=== PATIENT | male | born 1990 | race Two or more races ===

== ENCOUNTER 2023-04-23 12:04 | Outpatient (OUT) | payer SELFPAY ==
--- NOTE | 2023-04-23 12:13 | XR_ITS ---
The [address] [address] Patient Name: AN PATTEN MRN: [id number] date: 1990 Sex: M Assigned Patient Location: RAD Current Patient Location: RAD Accession/Order Number: [id number] Exam Date: 04/23/2023 12:20 Report Date: 04/23/2023 12:50 At the request of: YADIEL MICHEL Procedure: XR soft tissue neck EXAMINATION: XR abdomen 1V, XR soft tissue neck, [id number], [id number] HISTORY: Swallowed metal COMPARISON: None. FINDINGS/IMPRESSION: No radiopaque foreign body within the neck or abdomen. Note that the chest is not included on either of these exams. Retropharyngeal soft tissues and epiglottis are within normal limits. No hypopharyngeal narrowing. Nonobstructive bowel gas pattern. Stool burden is average. No acute fracture or suspicious osseous lesion. Electronically authenticated by: ONEAL CHAMBERS Date: 04/23/2023 12:50
--- NOTE | 2023-04-23 12:20 | XR_ITS ---
The [address] [address] Patient Name: AN PATTEN MRN: [id number] date: 1990 Sex: M Assigned Patient Location: RAD Current Patient Location: RAD Accession/Order Number: [id number] Exam Date: 04/23/2023 12:20 Report Date: 04/23/2023 12:50 At the request of: YADIEL MICHEL Procedure: XR abdomen 1V EXAMINATION: XR abdomen 1V, XR soft tissue neck, [id number], [id number] HISTORY: Swallowed metal COMPARISON: None. FINDINGS/IMPRESSION: No radiopaque foreign body within the neck or abdomen. Note that the chest is not included on either of these exams. Retropharyngeal soft tissues and epiglottis are within normal limits. No hypopharyngeal narrowing. Nonobstructive bowel gas pattern. Stool burden is average. No acute fracture or suspicious osseous lesion. Electronically authenticated by: ONEAL CHAMBERS Date: 04/23/2023 12:50
== END 2023-04-23 12:05 | disposition home or self-care (01) ==
LOC: RAD 12:08
PROVIDERS: Visit Provider Nurse Practitioner Family
DX: T18.9XXA Foreign body of alimentary tract, part unspecified, initial encounter (principal)
CPT/HCPCS: 70360; 74018

== ENCOUNTER 2024-08-22 14:59 | Emergency (ER) | payer OTHER, SELFPAY ==
[2024-08-22 15:15] VITALS: BP 109/73; TEMP 38.3; O2SAT 97; BMI 25.9
--- NOTE | 2024-08-22 15:21 | ED.GENADUL1 ---
HPI HPI - General Adult General Chief complaint: Nausea/Vomiting/Diarrhea Stated complaint: nausea, cough, body aches Time Seen by Provider: 08/22/24 15:01 Source: patient Mode of arrival: walk-in Limitations: no limitations History of Present Illness HPI narrative: Patient is a 33-year-old male who presents to the emergency department for evaluation of flulike illness that began last night. He states he is very tired and fatigued, he has a sore throat and cough. He reports nausea without vomiting. He has not had an objective fever at home although he is noted to be febrile on arrival to the ER. He reports a headache, he has not taken any Motrin or Tylenol today. No sick contacts in the home. He has not had any sputum production. Related Data Home Medications ?Medication ?Instructions ?Recorded ?Confirmed buprenorphine 8 mg-naloxone 2 mg 2 film sublingual Q24H 08/22/24 08/22/24 sublingual film hydroxyzine HCl 10 mg tablet 10 mg PO Q6H 08/22/24 08/22/24 Previous Rx's ?Medication ?Instructions ?Recorded albuterol sulfate 90 mcg/actuation 2 inh inhalation Q4H PRN shortness 08/22/24 aerosol inhaler of breath or wheezing #8.5 grams jrhaeklsmcnsrql-qtzsoomhvyxiqea-RP 10 ml PO Q6H PRN cold symptoms 08/22/24 2 mg-30 mg-10 mg/5 mL oral syrup #200 mL (Bromfed DM) cefdinir 300 mg capsule 300 mg PO BID 10 days #20 caps 08/22/24 dexamethasone 4 mg tablet 4 mg PO BID 5 days #10 tabs 08/22/24 ondansetron 4 mg disintegrating 4 mg PO Q6H PRN nausea and 08/22/24 tablet vomiting #12 tabs Allergies Allergy/AdvReac Type Severity Reaction Status Date / Time No Known Drug Allergies Allergy Verified 08/22/24 15:14 Opioid HPI Opioid Management Most Recent Opioid Data: Last Pain Scale 6 08/22/24 15:47 08/22/24 Last MAR Pain Assessment 08/22/24 15:47 Review of Systems ROS Constitutional Reports: fever; Denies: chills Ears, nose, mouth, and throat Reports: throat pain and nasal congestion Cardiovascular Denies: chest pain Respiratory Reports: cough and wheezing; Denies: shortness of breath Gastrointestinal Reports: nausea; Denies: abdominal pain, vomiting or diarrhea Integumentary/Breast Denies: rash Neurological Reports: headache; Denies: numbness in extremities or weakness in extremities Hematologic/Lymphatic Denies: easy bruising or easy bleeding PFSH PFS Social History Little interest or pleasure in doing things: not at all Feeling down, depressed, or hopeless: not at all Exam Narrative Exam Narrative: Gen.: Awake, alert, in no distress Head: Normocephalic, atraumatic ENT: Moist mucous membranes, no pharyngeal erythema with clear speech. No trismus or drooling. Bilateral TMs clear Respiratory: No respiratory distress, speaks in full sentences with faint expiratory wheezing globally. Cardio: Regular rate and rhythm Extremities: Moves extremities equally Psych: Normal mood and affect Neuro: No focal neuro deficit Skin: Warm, dry, intact Constitutional Vital Signs, click to edit/add: Last Vital Signs Temp 100.9 F H 08/22/24 15:15 Resp 98 H 08/22/24 15:15 BP 109/73 08/22/24 15:15 Pulse Ox 97 08/22/24 15:15 O2 Del Method Room Air 08/22/24 15:15 Course Vital Signs Vital signs: Vital Signs Temperature 100.9 F H 08/22/24 15:15 Respiratory Rate 98 H 08/22/24 15:15 Blood Pressure 109/73 08/22/24 15:15 Pulse Oximetry 97 08/22/24 15:15 Oxygen Delivery Method Room Air 08/22/24 15:15 Temperature 100.9 F H 08/22/24 15:15 Respiratory Rate 98 H 08/22/24 15:15 Blood Pressure 109/73 08/22/24 15:15 Pulse Oximetry 97 08/22/24 15:15 Oxygen Delivery Method Room Air 08/22/24 15:15 Medical Decision Making MDM Narrative Medical decision making narrative: Chest x-ray with trace amount of atelectasis versus left basilar infiltrate. Patient treated with breathing treatment, Zofran, Tylenol, albuterol in the ER. He will be placed on Zofran, Bromfed-DM, cefdinir, Medrol Dosepak and albuterol inhaler for home. Respiratory swabs are negative. Follow-up with PCP and return to the ER if symptoms change or worsen. SUPERVISED APC VISIT, PHYSICIAN ATTESTATION: Based on the medical record the care appears appropriate. ? Medical Records Medical records reviewed: Yes I reviewed the patient's medical records Lab Data Lab results reviewed: Yes I reviewed the patient's lab results Labs: Lab Results 08/22/24 08/22/24 Range/Units 15:20 15:22 Influenza Type A Ag Negative Influenza Type B Ag Negative SARS-CoV-2 Ag (CV2AG) Negative (NEGATIVE) Streptococcus Screen Negative Ref Lab Order Date 08/22/24 Ref Lab Test Name Strep a culture Ref Test Addition Info [facility] Imaging Data Chest x-ray: Attestation: I have reviewed the pertinent imaging results. Radiologist's impression: ITS Impressions Chest X-Ray 08/22/24 15:28 IMPRESSION: 1. Possible mild bronchiolitis. 2. Trace amount of left basilar infiltrates versus atelectasis. Electronically authenticated by: BONITA FUNG Date: 08/22/2024 15:55 Discharge Plan Discharge Chief Complaint: Nausea/Vomiting/Diarrhea Clinical Impression: Acute upper respiratory infection, Fever Patient Disposition: Home, Self-Care Time of Disposition Decision: 16:00 Condition: Good Prescriptions / Home Meds: New dexamethasone 4 mg tablet 4 mg PO BID 5 Days Qty: 10 0RF albuterol sulfate 90 mcg/actuation HFA aerosol inhaler 2 inh inhalation Q4H PRN (Reason: shortness of breath or wheezing) Qty: 8.5 0RF wxcgaozqqewtrhv-rjmqbkdid-AO [Bromfed DM] 2-30-10 mg/5 mL syrup 10 ml PO Q6H PRN (Reason: cold symptoms) Qty: 200 0RF ondansetron 4 mg tablet,disintegrating 4 mg PO Q6H PRN (Reason: nausea and vomiting) Qty: 12 0RF cefdinir 300 mg capsule 300 mg PO BID 10 Days Qty: 20 0RF No Action buprenorphine-naloxone 8-2 mg film 2 film sublingual Q24H hydroxyzine HCl 10 mg tablet 10 mg PO Q6H Print Language: [place] Instructions: Fever in Adults (ED), Upper Respiratory Infection (ED) Referrals: Physician,Non-Staff, MD [Primary Care Provider] - 1 week
--- NOTE | 2024-08-22 15:28 | XR_ITS ---
The [address] [address] Patient Name: AN PATTEN MRN: [id number] date: 1990 Sex: M Assigned Patient Location: ER Current Patient Location: ER Accession/Order Number: [id number] Exam Date: 08/22/2024 15:40 Report Date: 08/22/2024 15:55 At the request of: TYREL PORRAS Procedure: XR chest 1V EXAMINATION: XR chest 1V HISTORY: Cough COMPARISON: No relevant comparison available. FINDINGS: LUNGS: Slight wall thickening of a few central bronchi. Trace amount of stranding within lateral left lung base. VASCULATURE: No increased pulmonary vasculature. PLEURA: No pneumothorax, effusion, or pleural thickening. CARDIAC: No cardiomegaly or cardiac silhouette abnormality. MEDIASTINUM: No visible mass or adenopathy. BONES: No fracture or visible bone lesion. OTHER: Negative. XR/XR chest 1V IMPRESSION: 1. Possible mild bronchiolitis. 2. Trace amount of left basilar infiltrates versus atelectasis. Electronically authenticated by: BONITA FUNG Date: 08/22/2024 15:55
[2024-08-22] MEDS: ACETAMINOPHEN 325 MG TABLET 650 MG PO (15:47)
[2024-08-22] MEDS: ALBUTEROL SULFATE 2.5 MG/3 ML VIAL NEB IH (15:47)
[2024-08-22] MEDS: ONDANSETRON 4 MG RAPDIS TABLET SL (15:47)
[2024-08-22 15:53] LABS: Influenza Virus A Antigen Negative; Influenza Virus B Antigen Negative; Internal Control Within Normal Limits; SARS-CoV-2 Ag NEGATIVE (NEGATIVE)
[2024-08-22 15:54] LABS: Internal Control Within Normal Limits; Strep A Antigen Screen Negative
[2024-08-22 15:55] LABS: BOX Test Reference Lab FIRELANDS
[2024-08-22 16:23] VITALS: TEMP 38.2
[2024-08-22 16:40] VITALS: BP 112/71; PULSE 103; TEMP 37.7; O2SAT 96
== END 2024-08-22 16:42 | disposition home or self-care (01) ==
PROVIDERS: Physician Assistant; Emergency Provider Emergency Medicine
DX: J06.9 Acute upper respiratory infection, unspecified (principal); R50.9 Fever, unspecified
CPT/HCPCS: 36415; 71045; 87070; 87081; 87804; 87811; 87880; 99284; Q0162